=== PATIENT | male | born 1945 | race American Indian/Alaskan Native ===

== ENCOUNTER 2019-06-30 01:25 | Emergency (ER) | payer OTHER ==
--- NOTE | 2019-06-30 01:40 | Emergency Department Report ---
ED CPR HPI - General Stated Complaint: CARDIAC ARREST Time Seen by Provider: 06/30/19 01:25 Source: EMS Mode of arrival: Stretcher Limitations: Altered Mental Status, Physical Limitation - History of Present Illness Initial Comments: Patient is a 73-year-old patient presents for cardiac arrest. Report received from EMS. EMS intubated the patient. Patient has received multiple rounds of CPR and ACLS medications. EMS placed a right IO MD Complaint: found unresponsive -: minute(s) Place: NH/SNF Bystander CPR Performed: No AED Applied by Bystander/Mft: No Shock Advised: No Initial Findings in the Field: unresponsive, no respirations, no pulse ROSC in the Field: No Associated Injuries: No Treatments Prior to Arrival: intubation, BMV, chest compressions, epinephrine mgs # ED Review of Systems ROS: Stated complaint: CARDIAC ARREST Other details as noted in HPI Comment: Unobtainable due to pts medical conditions ED Past Medical Hx - Past Medical History Previous Medical History?: Yes Hx Hypertension: Yes Hx CVA: Yes Hx Diabetes: Yes Hx Renal Disease: Yes - Surgical History Past Surgical History?: Yes Additional Surgical History: PEG tube. Dialysis shunt - Family History Family history: no significant - Social History Smoking Status: Unknown if ever smoked Substance Use Type: None ED Physical Exam - General Limitations: Altered Mental Status, Physical Limitation General appearance: obtunded - Head Head exam: Present: atraumatic, normocephalic - Eye Eye exam: Present: other (pupils fixed and dilated) - ENT ENT exam: Present: mucous membranes dry, other (GI contents in oropharynx) - Neck Neck exam: Present: normal inspection - Respiratory Respiratory exam: Present: other - Cardiovascular Cardiovascular Exam: Present: other (no pulse and asystole on monitor) - GI/Abdominal GI/Abdominal exam: Present: soft, other (gastric tube noted) - Rectal Rectal exam: Present: deferred - Extremities Exam Extremities exam: Present: normal inspection, other (right lower extremity IO) - Neurological Exam Neurological exam: Present: altered - Skin Skin exam: Present: warm, dry ED Course - Reevaluation(s) Reevaluation #1: Patient arrive via EMS. Patient noted to be in asystole. Patient noted to have GI contents inside the ET tube and no breath sounds and sounds over the epigastrium. Patient extubated and reintubated. See procedure note. 06/30/19 01:25 Reevaluation #2: Resuscitation efforts discontinued due to no pulse and no signs of life. No respiratory motion. No cardiac motion. Asystole on the monitor. See code note 06/30/19 01:34 ED Medical Decision Making - Medical Decision Making Patient is a 73-year-old male presents emergency department for cardiac arrest. Patient's resuscitation efforts terminated due no signs of life. The patient was immediately reintubated. Code ran according to ACLS guidelines. Patient was extubated upon arrival due to ET tube being in the stomach. Patient had multiple medical problems. - Differential Diagnosis cardiac arrest Critical Care Time: Yes Critical care attestation.: If time is entered above; I have spent that time in minutes in the direct care of this critically ill patient, excluding procedure time. Critical Care Time: 35 minutes ED Disposition Clinical Impression: Cardiac arrest Disposition: DC-20 Is pt being admited?: No Does the pt Need Aspirin: No Condition: Stable Time of Disposition: 02:07
[2019-06-30] MEDS ORDERED: ADRENALIN ONE (07:35)
== END 2019-06-30 06:00 ==
LOC: ED 01:25
DX: I46.9 Cardiac arrest, cause unspecified (principal); I10 Essential (primary) hypertension; E11.9 Type 2 diabetes mellitus without complications; Z87.442 Personal history of urinary calculi; Z86.73 Personal history of transient ischemic attack (TIA), and cerebral infarction without residual deficits
CPT/HCPCS: 31500; 92950; 99285; J0171